=== PATIENT | female | born 1950 ===

== ENCOUNTER 2017-11-30 20:36 | Inpatient (IN) | payer OTHER, MEDICARE ==
[2017-11-30] MEDS ORDERED: Sodium Chloride 0.9% 1,000 ML ONE (21:09)
[2017-11-30] MEDS ORDERED: Sodium Chloride 0.9% 1,000 ML IV ONE (21:18)
[2017-11-30 21:22] LABS: SQUAMOUS EPITHIAL 4 /hpf (0-5); URINE BILIRUBIN NEGATIVE (NEGATIVE); URINE BLOOD 2+ (NEGATIVE); URINE CLARITY Hazy (Clear); URINE COLOR Yellow (YELLOW); URINE GLUCOSE (UA) NORMAL (Normal); URINE LEUKOCYTE ESTERASE 3+ Leu/uL (Negative); URINE PROTEIN NEGATIVE (NEGATIVE); URINE UROBILINOGEN NORMAL mg/dL (0.2-1.0)
--- NOTE | 2017-11-30 21:22 | C.PDOC ---
History Of Present Illness 67 year old female, whose PMHx includes Rheumatoid Arthritis, presents to the ED for evaluation of abdominal pain and vomiting which began at around 1300 today. Patient reports feeling nauseous and "gassy." She had one episode of vomiting and one episode of diarrhea. She denies fever, chills, and has no other complaints at this time. Time Seen by Provider: 11/30/17 21:07 Chief Complaint (Nursing): Abdominal Pain History Per: Patient History/Exam Limitations: no limitations Onset/Duration Of Symptoms: Hrs Current Symptoms Are (Timing): Still Present Location Of Pain/Discomfort: Diffuse Quality Of Discomfort: "Pain" Associated Symptoms: Nausea, Vomiting, Diarrhea. denies: Fever, Chills Additional History Per: Patient Past Medical History Reviewed: Historical Data, Nursing Documentation, Vital Signs Vital Signs: Last Vital Signs Temp 99 F 12/02/17 00:00 Pulse 104 H 12/02/17 00:00 Resp 20 12/02/17 00:00 BP 125/68 12/02/17 00:00 Pulse Ox 99 12/02/17 07:11 - Medical History PMH: Hypothyroidism, Rheumatoid Arthritis Surgical History: No Surg Hx Family History: States: Unknown Family Hx - Social History Hx Alcohol Use: No Hx Substance Use: No Review Of Systems Constitutional: Negative for: Fever, Chills Gastrointestinal: Positive for: Nausea, Vomiting, Abdominal Pain, Diarrhea Physical Exam - Physical Exam Appears: Non-toxic, No Acute Distress Skin: Normal Color, Warm, Dry Head: Atraumatic, Normacephalic Eye(s): bilateral: Normal Inspection Oral Mucosa: Moist Neck: Supple Chest: Symmetrical, No Deformity, No Tenderness Cardiovascular: Rhythm Regular, No Murmur Respiratory: Normal Breath Sounds, No Rales, No Rhonchi, No Wheezing Gastrointestinal/Abdominal: Soft, Tenderness (mild, nonfocal ), No Guarding, No Rebound Extremity: Normal ROM, Capillary Refill (less than 2 seconds ) Neurological/Psych: Oriented x3, Normal Speech, Normal Cognition ED Course And Treatment - Laboratory Results Result Diagrams: 12/02/17 06:11 12/02/17 06:11 ECG: Interpreted By Me, Viewed By Me ECG Rhythm: Sinus Rhythm Interpretation Of ECG: Normal Sinus Rhythm at rate 67bpm. No ST/T wave changes. Rate From EC O2 Sat by Pulse Oximetry: 99 (on RA) Pulse Ox Interpretation: Normal Progress Note: Bloodwork, urinalysis, and EKG ordered and reviewed. Protonix IVP, Zofran IVP and IV Fluids given. Medical Decision Making Medical Decision Making: ro colitis gastritis pud, gallbladder pathology - labs imaging. antibioitcs ordered, case discusseed with dr zakia odonnell Disposition - Disposition Disposition: HOSPITALIZED Disposition Time: 23:33 Condition: STABLE - Clinical Impression Clinical Impression: Cholecystitis - Scribe Statement The provider has reviewed the documentation as recorded by the Scribe (Amelie Dorman) Provider Attestation: All medical record entries made by the Scribe were at my direction and personally dictated by me. I have reviewed the chart and agree that the record accurately reflects my personal performance of the history, physical exam, medical decision making, and the department course for this patient. I have also personally directed, reviewed, and agree with the discharge instructions and disposition. Decision To Admit - . Bed Request Type: Regular Admitting Physician: Jim Dorman Patient Diagnosis: Cholecystitis
[2017-11-30 21:32] LABS: BASO % 0.3 % (0.0-2.0); HEMOGLOBIN 13.1 g/dL (11.0-16.0); LYMPH # 0.7 K/uL (1.0-4.3); LYMPH % 5.8 % (20.0-40.0); MEAN CELL VOLUME 91.3 fL (81.0-99.0); MEAN CORPUSCULAR HEMOGLOBIN 30.4 pg (27.0-31.0); MEAN CORPUSCULAR HGB CONC 33.4 g/dL (33.0-37.0); MEAN PLATELET VOLUME 7.4 fL (7.2-11.7); MONO # 0.3 K/uL (0.0-0.8); MONO % 2.4 % (0.0-10.0); NEUT % 91.5 % (50.0-75.0); NRBC % 0.2 % (0.0-2.0); PLATELET COUNT 326 K/uL (130-400); RED CELL DISTRIBUTION WIDTH 13.5 % (11.5-14.5)
[2017-11-30 21:41] LABS: PROTHROMBIN TIME 11.3 SECONDS (9.7-12.2)
[2017-11-30 21:47] LABS: ALB/GLOB RATIO 1.6 (1.0-2.1); ALBUMIN 4.7 g/dL (3.5-5.0); ALT/SGPT 27 U/L (9-52); AST/SGOT 20 U/L (14-36); BLOOD UREA NITROGEN 15 mg/dL (7-17); CALCIUM 9.7 mg/dl (8.6-10.4); GFR AFRICAN-AMERICAN > 60; GFR NON-AFRICAN AMERICAN > 60; LIPASE 57 U/L (23-300)
[2017-11-30] MEDS ORDERED: Iohexol 300 100 ML IJ ONE ×2 (21:58→22:08)
[2017-11-30] MEDS ORDERED: cefTRIAXone IV 1 gm in Dextros 50 ML IVPB ONE (22:10)
[2017-11-30 22:16] LABS: BANDS 1 % (0-2); LYMPHOCYTE 6 % (20-40); MONOCYTE 1 % (0-10); NEUTROPHIL 92 % (50-75); PLATELET ESTIMATE NORMAL (NORMAL); TOTAL CELLS COUNTED 100
[2017-11-30] MEDS ORDERED: Piperacillin/Tazobact 3.375 gm 100 ML IVPB STA (23:22)
[2017-11-30] MEDS ORDERED: metroNIDAZOLE IV 500 mg/100 ml 500 MG/100 ML BAG IVPB STA (23:23)
[2017-12-01] MEDS ORDERED: metroNIDAZOLE IV 500 mg/100 ml 500 MG/100 ML BAG ONE (00:02)
[2017-12-01] MEDS ORDERED: Sodium Chloride 0.9% 1,000 ML IV SCH (08:15)
--- NOTE | 2017-12-01 08:43 | CT ---
Date of service: 11/30/2017 PROCEDURE: CT Abdomen and Pelvis with intravenous contrast HISTORY: Abdominal pain COMPARISON: None. TECHNIQUE: Multiple contiguous axial images were performed through the abdomen and pelvis with the use of intravenous contrast. Subsequently, sagittal and coronal reformatted images were obtained. Radiation dose: Total exam DLP = 504 mGy-cm. This CT exam was performed using one or more of the following dose reduction techniques: Automated exposure control, adjustment of the mA and/or kV according to patient size, and/or use of iterative reconstruction technique. FINDINGS: LOWER THORAX: Unremarkable. LIVER: Unremarkable. No gross lesion or ductal dilatation. GALLBLADDER AND BILE DUCTS: Cholelithiasis. Gallbladder wall is thickened. Suggestion of a 5-6 millimeter calculus in the distal common bile duct. Mild intrahepatic biliary ductal prominence. PANCREAS: Unremarkable. No gross lesion or ductal dilatation. SPLEEN: Unremarkable. ADRENALS: Unremarkable. No mass. KIDNEYS AND URETERS: Nonobstructing 6 millimeter calculus in the lower pole of the left kidney. Few punctate scattered low-attenuation foci throughout both kidneys, too small to adequately characterize. VASCULATURE: Unremarkable. No aortic aneurysm. BOWEL: Scattered areas of colonic underdistention. APPENDIX: Unremarkable. Normal appendix. PERITONEUM: Unremarkable. No free fluid. No free air. LYMPH NODES: Unremarkable. No enlarged lymph nodes. BLADDER: Unremarkable. REPRODUCTIVE: Pessary in the vagina. Suggestion of a fibroid lesion off the posterior aspect of the uterus. Pelvic ultrasound correlation may be helpful if clinically indicated. BONES: Degenerative changes in the lumbar spine. Anterolisthesis of L5 on S1 as well as L4 on L5. Retrolisthesis of L1 on L2 and L2 on L3. Scoliotic curvature of the spine. OTHER FINDINGS: None. IMPRESSION: Cholelithiasis. Gallbladder wall is thickened. There appears to be a 6 millimeter calculus in the distal common bile duct. Mild intrahepatic biliary ductal prominence. Findings are concerning for acute cholecystitis. Ultrasound evaluation may be helpful if clinically indicated. Additional findings as above. These findings were preliminarily reported at 11:18 p.m. on 11/30/[address] Prabhu Coello from [employer].
[2017-12-01] MEDS: Piperacillin/Tazobact 3.375 GM in Sodium Chloride 100 ML IVPB SCH ×3 (09:57→21:59)
[2017-12-01] MEDS ORDERED: Potassium Chloride 20 mEq ER Tab PO ONE ×2 (10:00)
[2017-12-01] MEDS ORDERED: Lactated Ringer's 1,000 ML IV ONE ×2 (11:42)
[2017-12-01] MEDS ORDERED: Propofol 10 mg/ml Inj (20 ML) ONE (12:13)
[2017-12-01] MEDS ORDERED: Rocuronium 10 mg/ml (5 ml) ONE (12:14)
--- NOTE | 2017-12-01 12:35 | CP.PCM.CON ---
History of Present Illness - History of Present Illness History of Present Illness: General Surgery Consult for Dr. Clark Reason for consult: abdominal pain, cholelithiasis/choledolcholithiasis 67 F with PMH of Rheumatoid arthritis, hypothyroidism, neuropathy presents to [facility] for complaint of abdominal pain. Patient states pain has been present since yesterday. Patient reports sudden onset. She states that she has had this pain in the past twic and the last was about one year ago. She states that she had a couple episodes of nausea/vomiting with NBNB emesis. She rates pain as severe at its worst. She describes pain as constant and dull in epigastric region radiating to umbilicus. She denies any alleviating or aggravating factors. She denies any recent illness or sick contacts. Deneis Fever/chills, chest pain, SOB, palpitations, diarrhea, constipation, incontinenece. Abdominal CT was done in the ED which showed cholelithiasis and choledolcholithiasis. ERCP was perfromed today. No stone was visualized in CBD. GB and cystic duct were also not visulaized. A stent was placed. PMH: stated above Meds: Methotrexate, plaquinel, Gabapentin, Synthroid All: NKDA PSH: retinal aneurysm clipping x 3, x 2, ERCP FH: non-contributory Social: former smoker - 30 yr pack history, deneis ETOH/illicit drug use Review of Systems - Review of Systems All systems: reviewed and no additional remarkable complaints except (as per HPI ) Past Patient History - Past Medical History & Family History Past Medical History?: Yes - Past Social History Smoking Status: Former Smoker - ENDOCRINE/METABOLIC Hx Hypothyroidism: Yes - MUSCULOSKELETAL/RHEUMATOLOGICAL Hx Falls: No Hx Rheumatoid Arthritis: Yes - GENITOURINARY/GYNECOLOGICAL Other/Comment: vaginal problem - takes pessary - PSYCHIATRIC Hx Substance Use: No - SURGICAL HISTORY Other/Comment: aneurism behind left eye - ANESTHESIA Hx Anesthesia: Yes Hx Anesthesia Reactions: No Hx Malignant Hyperthermia: No Has any member of the family had a problem w/ anesthesia?: No Meds Allergies/Adverse Reactions: Allergies Allergy/AdvReac Type Severity Reaction Status Date / Time No Known Allergies Allergy Verified 11/30/17 20:52 - Medications Medications: Current Medications Sodium Chloride (Sodium Chloride 0.9%) 1,000 mls @ 80 mls/hr IV .[id number] [facility] Last Admin: 12/01/17 09:58 Dose: 80 mls/hr Piperacillin Sod/Tazobactam (Sod 3.375 gm/ Sodium Chloride) 100 mls @ 200 mls/ hr IVPB Q6H [facility] PRN Reason: Protocol Last Admin: 12/01/17 09:57 Dose: 200 mls/hr Ciprofloxacin (Cipro 400mg/200ml Dsw) 400 mg in 200 mls @ 133 mls/hr IVPB Q12H [facility] PRN Reason: Protocol Levothyroxine Sodium (Synthroid) 75 mcg PO 0630 [facility] Metoclopramide HCl (Reglan) 10 mg IVP Q8H [facility] Stop: 12/02/17 18:01 Pantoprazole Sodium (Protonix Inj) 40 mg IVP DAILY [facility] Last Admin: 12/01/17 09:57 Dose: 40 mg Physical Exam - Constitutional Appears: No Acute Distress - Head Exam Head Exam: ATRAUMATIC, NORMOCEPHALIC - Eye Exam Eye Exam: EOMI, Normal appearance. absent: Scleral icterus Pupil Exam: PERRL - ENT Exam ENT Exam: Mucous Membranes Moist - Respiratory Exam Respiratory Exam: NORMAL BREATHING PATTERN - Cardiovascular Exam Cardiovascular Exam: REGULAR RHYTHM - GI/Abdominal Exam GI & Abdominal Exam: Normal Bowel Sounds, Soft. absent: Distended, Firm, Guarding, Rebound, Rigid, Tenderness - Extremities Exam Extremities exam: Positive for: normal capillary refill, pedal pulses present - Back Exam Back exam: absent: CVA tenderness (L), CVA tenderness (R) - Neurological Exam Neurological exam: Alert, CN II-XII Intact, Oriented x3 - Psychiatric Exam Psychiatric exam: Normal Affect, Normal Mood - Skin Skin Exam: Dry, Intact, Normal Color, Warm Results - Vital Signs Recent Vital Signs: Last Vital Signs Temp 99.8 F H 12/01/17 07:00 Pulse 68 12/01/17 07:00 Resp 20 12/01/17 07:00 BP 134/71 12/01/17 07:00 Pulse Ox 97 12/01/17 07:00 - Labs Result Diagrams: 11/30/17 21:26 11/30/17 21:26 Labs: Laboratory Results - last 24 hr 11/30/17 11/30/17 11/30/17 21:13 21:26 21:26 WBC 12.0 H RBC 4.30 Hgb 13.1 Hct 39.3 MCV 91.3 MCH 30.4 MCHC 33.4 RDW 13.5 Plt Count 326 MPV 7.4 Neut % (Auto) 91.5 H Lymph % (Auto) 5.8 L [place] % (Auto) 2.4 Eos % (Auto) 0.0 Baso % (Auto) 0.3 Neut # (Auto) 11.0 H Lymph # (Auto) 0.7 L [place] # (Auto) 0.3 Eos # (Auto) 0.0 Baso # (Auto) 0.0 Neutrophils % (Manual) 92 H Band Neutrophils % 1 Lymphocytes % (Manual) 6 L Monocytes % (Manual) 1 Platelet Estimate Normal PT INR APTT Sodium 141 Potassium 3.5 L Chloride 101 Carbon Dioxide 29 Anion Gap 14 BUN 15 Creatinine 0.5 L Est GFR ( Amer) > 60 Est GFR (Non-Af Amer) > 60 Random Glucose 156 H Calcium 9.7 Total Bilirubin 0.7 AST 20 ALT 27 Alkaline Phosphatase 74 Troponin I < 0.0120 Total Protein 7.7 Albumin 4.7 Globulin 3.0 Albumin/Globulin Ratio 1.6 Lipase 57 Urine Color Yellow Urine Clarity Hazy Urine pH 6.0 Ur Specific [place] 1.016 Urine Protein Negative Urine Glucose (UA) Normal Urine Ketones 1+ H Urine Blood 2+ H Urine Nitrate Negative Urine Bilirubin Negative Urine Urobilinogen Normal Ur Leukocyte Esterase 3+ H Urine WBC (Auto) 27 H Urine RBC (Auto) 35 H Ur Squamous Epith Cells 4 11/30/18 21:26 WBC RBC Hgb Hct MCV MCH MCHC RDW Plt Count MPV Neut % (Auto) Lymph % (Auto) Early % (Auto) Eos % (Auto) Baso % (Auto) Neut # (Auto) Lymph # (Auto) Early # (Auto) Eos # (Auto) Baso # (Auto) Neutrophils % (Manual) Band Neutrophils % Lymphocytes % (Manual) Monocytes % (Manual) Platelet Estimate PT 11.3 INR 1.0 APTT 34 Sodium Potassium Chloride Carbon Dioxide Anion Gap BUN Creatinine Est GFR ( Amer) Est GFR (Non-Af Amer) Random Glucose Calcium Total Bilirubin AST ALT Alkaline Phosphatase Troponin I Total Protein Albumin Globulin Albumin/Globulin Ratio Lipase Urine Color Urine Clarity Urine pH Ur Specific [place] Urine Protein Urine Glucose (UA) Urine Ketones Urine Blood Urine Nitrate Urine Bilirubin Urine Urobilinogen Ur Leukocyte Esterase Urine WBC (Auto) Urine RBC (Auto) Ur Squamous Epith Cells Assessment & Plan - Assessment and Plan (Free Text) Assessment: 67 F with cholelithiasis Plan: -NPO past MN -IV fluids -OR tomorrow for laparoscopic cholecystectomy -Analgesics/Anti-emetics PRN -Further recommendations as per Dr. Amber Bro PGY2 - Date & Time Date: 12/01/17 Time: 14:30
--- NOTE | 2017-12-01 13:25 | CP.PCM.CON ---
History of Present Illness - History of Present Illness History of Present Illness: Asked by Dr. Dorman for a GI consultation on this patient. 67 year old female with history of hyperlipidemia, hypothyroidism who presents to hospital with complaint of sudden onset abdominal pain which began yesterday. Prior to this she was in usual state of health, though endorses intermittent epigastric and RUQ abdominal pain over the past one year which would resolve on its own. Yesterday evening she developed sharp, 5/10 intensity sumaya-umbilical pain radiating to back that was associated with one episode of nausea and non-bloody emesis. She denies fever/chills, diarrhea, rectal bleeding, jaundice, pruritis , or change in bowel habits. She had a colonoscopy nearly 8 years ago which was normal as per patient. Social history: non-smoker, no ETOH use Family history: reviewed, patient denies history of GI malignancies Review of Systems - Review of Systems Review of Systems: - All other comprehensive 12 point review of systems performed, negative - Cardiovascular Cardiovascular: absent: Acrocyanosis, Chest Pain, Chest Pain at Rest, Chest Pain with Activity, Claudication, Diaphoresis, Dyspnea, Dyspnea on Exertion, Edema, Irregular Heart Rhythm, Pain Radiating to Arm/Neck/Jaw, Leg Edema, Leg Ulcers, Lightheadedness, Orthopnea, Palpitations, Paroxysmal Nocturnal Dyspnea, Pedal Edema, Radiating Pain, Rapid Heart Rate, Slow Heart Rate, Syncope, Other - Respiratory Respiratory: absent: Cough, Dyspnea, Hemoptysis, Dyspnea on Exertion, Wheezing, Snoring, Stridor, Pain on Inspiration, Chest Congestion, Excessive Mucous Production, Change in Mucous Color, Pain with Coughing, Other - Gastrointestinal Gastrointestinal: Abdominal Pain, Nausea, Vomiting - Musculoskeletal Musculoskeletal: absent: Abnormal Gait, Arthralgias, Atrophy, Back Pain, Deformity, Joint Swelling, Limited Range of Motion, Loss of Height, Muscle Cramps, Muscle Weakness, Myalgias, Neck Pain, Numbness, Radiating Pain into Limb , Stiffness, Tingling, Other - Neurological Neurological: absent: Abnormal Gait, Abnormal Hearing, Abnormal Movements, Abnormal Speech, Behavioral Changes, Burning Sensations, Confusion, Convulsions , Disequilibrium, Dizziness, Numbness, Focal Weakness, Frequent Falls, Headaches , Lack of Coordination, Loss of Vision, Memory Loss, Paresthesias, Radicular Pain, Restless Legs, Sensory Deficit, Syncope, Tingling, Tremor, Vertigo, Weakness, Other Visual Disturbances, Other Past Patient History - Past Medical History & Family History Past Medical History?: Yes - Past Social History Smoking Status: Former Smoker - ENDOCRINE/METABOLIC Hx Hypothyroidism: Yes - MUSCULOSKELETAL/RHEUMATOLOGICAL Hx Falls: No Hx Rheumatoid Arthritis: Yes - GENITOURINARY/GYNECOLOGICAL Other/Comment: vaginal problem - takes pessary - PSYCHIATRIC Hx Substance Use: No - SURGICAL HISTORY Other/Comment: aneurism behind left eye - ANESTHESIA Hx Anesthesia: Yes Hx Anesthesia Reactions: No Hx Malignant Hyperthermia: No Has any member of the family had a problem w/ anesthesia?: No Meds Allergies/Adverse Reactions: Allergies Allergy/AdvReac Type Severity Reaction Status Date / Time No Known Allergies Allergy Verified 11/30/17 20:52 - Medications Medications: Current Medications Sodium Chloride (Sodium Chloride 0.9%) 1,000 mls @ 80 mls/hr IV .[id number] [facility] Last Admin: 12/01/17 09:58 Dose: 80 mls/hr Piperacillin Sod/Tazobactam (Sod 3.375 gm/ Sodium Chloride) 100 mls @ 200 mls/ hr IVPB Q6H [facility] PRN Reason: Protocol Last Admin: 12/01/17 09:57 Dose: 200 mls/hr Ciprofloxacin (Cipro 400mg/200ml Dsw) 400 mg in 200 mls @ 133 mls/hr IVPB Q12H [facility] PRN Reason: Protocol Levothyroxine Sodium (Synthroid) 75 mcg PO 0630 [facility] Metoclopramide HCl (Reglan) 10 mg IVP Q8H [facility] Stop: 12/02/17 18:01 Pantoprazole Sodium (Protonix Inj) 40 mg IVP DAILY [facility] Last Admin: 12/01/17 09:57 Dose: 40 mg Physical Exam - Constitutional Appears: Non-toxic, No Acute Distress - Head Exam Head Exam: NORMAL INSPECTION - Eye Exam Eye Exam: EOMI, Normal appearance - ENT Exam ENT Exam: Mucous Membranes Moist - Respiratory Exam Respiratory Exam: Clear to Auscultation Bilateral - Cardiovascular Exam Cardiovascular Exam: REGULAR RHYTHM, +S1, +S2 - GI/Abdominal Exam GI & Abdominal Exam: Normal Bowel Sounds, Soft, Tenderness Additional comments: sumaya-umbilical and epigastric tenderness to palpation, no rebound/guarding no palpable hepato/splenomegaly - Extremities Exam Extremities exam: Positive for: normal inspection - Neurological Exam Neurological exam: Alert, CN II-XII Intact, Oriented x3, Reflexes Normal - Psychiatric Exam Psychiatric exam: Normal Affect, Normal Mood - Skin Skin Exam: Dry, Intact, Normal Color, Warm Results - Vital Signs Recent Vital Signs: Last Vital Signs Temp 99.8 F H 12/01/17 07:00 Pulse 68 12/01/17 07:00 Resp 20 12/01/17 07:00 BP 134/71 12/01/17 07:00 Pulse Ox 97 12/01/17 07:00 - Labs Result Diagrams: 11/30/17 21:26 11/30/17 21:26 Labs: Laboratory Results - last 24 hr 11/30/17 11/30/17 11/30/17 21:13 21:26 21:26 WBC 12.0 H RBC 4.30 Hgb 13.1 Hct 39.3 MCV 91.3 MCH 30.4 MCHC 33.4 RDW 13.5 Plt Count 326 MPV 7.4 Neut % (Auto) 91.5 H Lymph % (Auto) 5.8 L [place] % (Auto) 2.4 Eos % (Auto) 0.0 Baso % (Auto) 0.3 Neut # (Auto) 11.0 H Lymph # (Auto) 0.7 L [place] # (Auto) 0.3 Eos # (Auto) 0.0 Baso # (Auto) 0.0 Neutrophils % (Manual) 92 H Band Neutrophils % 1 Lymphocytes % (Manual) 6 L Monocytes % (Manual) 1 Platelet Estimate Normal PT INR APTT Sodium 141 Potassium 3.5 L Chloride 101 Carbon Dioxide 29 Anion Gap 14 BUN 15 Creatinine 0.5 L Est GFR ( Amer) > 60 Est GFR (Non-Af Amer) > 60 Random Glucose 156 H Calcium 9.7 Total Bilirubin 0.7 AST 20 ALT 27 Alkaline Phosphatase 74 Troponin I < 0.0120 Total Protein 7.7 Albumin 4.7 Globulin 3.0 Albumin/Globulin Ratio 1.6 Lipase 57 Urine Color Yellow Urine Clarity Hazy Urine pH 6.0 Ur Specific [place] 1.016 Urine Protein Negative Urine Glucose (UA) Normal Urine Ketones 1+ H Urine Blood 2+ H Urine Nitrate Negative Urine Bilirubin Negative Urine Urobilinogen Normal Ur Leukocyte Esterase 3+ H Urine WBC (Auto) 27 H Urine RBC (Auto) 35 H Ur Squamous Epith Cells 4 11/30/17 21:26 WBC RBC Hgb Hct MCV MCH MCHC RDW Plt Count MPV Neut % (Auto) Lymph % (Auto) [place] % (Auto) Eos % (Auto) Baso % (Auto) Neut # (Auto) Lymph # (Auto) [place] # (Auto) Eos # (Auto) Baso # (Auto) Neutrophils % (Manual) Band Neutrophils % Lymphocytes % (Manual) Monocytes % (Manual) Platelet Estimate PT 11.3 INR 1.0 APTT 34 Sodium Potassium Chloride Carbon Dioxide Anion Gap BUN Creatinine Est GFR ( Amer) Est GFR (Non-Af Amer) Random Glucose Calcium Total Bilirubin AST ALT Alkaline Phosphatase Troponin I Total Protein Albumin Globulin Albumin/Globulin Ratio Lipase Urine Color Urine Clarity Urine pH Ur Specific [place] Urine Protein Urine Glucose (UA) Urine Ketones Urine Blood Urine Nitrate Urine Bilirubin Urine Urobilinogen Ur Leukocyte Esterase Urine WBC (Auto) Urine RBC (Auto) Ur Squamous Epith Cells Assessment & Plan - Assessment and Plan (Free Text) Assessment: Hyperlipidemia Hypothyroidism Abdominal pain CT imaging reviewed by me showing cholelithiasis, thickened GB wall, distal CBD stone approximately 5 mm UTI Plan: - NPO - Continue with antibiotic therapy - LFTs normal, continue to monitor - Given presence of choledocholithiasis and abdominal pain, suggest ERCP with stone extraction today - Follow up surgical recommendations regarding timing of potential cholecystectomy - Will continue to monitor patient clinical course
[2017-12-01] MEDS: Ciprofloxacin 400mg/200ml D5W 400 MG/200 ML BAG IVPB SCH ×2 (14:08→15:42)
[2017-12-01] MEDS ORDERED: Lactated Ringer's 500 ML IV SCH (14:15)
--- NOTE | 2017-12-01 16:31 | CP.PCM.HP ---
Past Patient History - Past Medical History & Family History Past Medical History?: Yes - Past Social History Smoking Status: Former Smoker - ENDOCRINE/METABOLIC Hx Hypothyroidism: Yes - MUSCULOSKELETAL/RHEUMATOLOGICAL Hx Falls: No Hx Rheumatoid Arthritis: Yes - GENITOURINARY/GYNECOLOGICAL Other/Comment: vaginal problem - takes pessary - PSYCHIATRIC Hx Substance Use: No - SURGICAL HISTORY Other/Comment: aneurism behind left eye - ANESTHESIA Hx Anesthesia: Yes Hx Anesthesia Reactions: No Hx Malignant Hyperthermia: No Has any member of the family had a problem w/ anesthesia?: No Meds Allergies/Adverse Reactions: Allergies Allergy/AdvReac Type Severity Reaction Status Date / Time No Known Allergies Allergy Verified 11/30/17 20:52 Results - Vital Signs Recent Vital Signs: Last Vital Signs Temp 97 F L 12/01/17 13:35 Pulse 79 12/01/17 14:20 Resp 18 12/01/17 14:20 BP 133/63 12/01/17 14:20 Pulse Ox 100 12/01/17 14:20 - Labs Result Diagrams: 11/30/17 21:26 11/30/17 21:26 Labs: Laboratory Results - last 24 hr 11/30/17 11/30/17 11/30/17 21:13 21:26 21:26 WBC 12.0 H RBC 4.30 Hgb 13.1 Hct 39.3 MCV 91.3 MCH 30.4 MCHC 33.4 RDW 13.5 Plt Count 326 MPV 7.4 Neut % (Auto) 91.5 H Lymph % (Auto) 5.8 L [place] % (Auto) 2.4 Eos % (Auto) 0.0 Baso % (Auto) 0.3 Neut # (Auto) 11.0 H Lymph # (Auto) 0.7 L [place] # (Auto) 0.3 Eos # (Auto) 0.0 Baso # (Auto) 0.0 Neutrophils % (Manual) 92 H Band Neutrophils % 1 Lymphocytes % (Manual) 6 L Monocytes % (Manual) 1 Platelet Estimate Normal PT INR APTT Sodium 141 Potassium 3.5 L Chloride 101 Carbon Dioxide 29 Anion Gap 14 BUN 15 Creatinine 0.5 L Est GFR ( Amer) > 60 Est GFR (Non-Af Amer) > 60 Random Glucose 156 H Calcium 9.7 Total Bilirubin 0.7 AST 20 ALT 27 Alkaline Phosphatase 74 Troponin I < 0.0120 Total Protein 7.7 Albumin 4.7 Globulin 3.0 Albumin/Globulin Ratio 1.6 Lipase 57 Urine Color Yellow Urine Clarity Hazy Urine pH 6.0 Ur Specific [place] 1.016 Urine Protein Negative Urine Glucose (UA) Normal Urine Ketones 1+ H Urine Blood 2+ H Urine Nitrate Negative Urine Bilirubin Negative Urine Urobilinogen Normal Ur Leukocyte Esterase 3+ H Urine WBC (Auto) 27 H Urine RBC (Auto) 35 H Ur Squamous Epith Cells 4 11/30/17 21:26 WBC RBC Hgb Hct MCV MCH MCHC RDW Plt Count MPV Neut % (Auto) Lymph % (Auto) [place] % (Auto) Eos % (Auto) Baso % (Auto) Neut # (Auto) Lymph # (Auto) [place] # (Auto) Eos # (Auto) Baso # (Auto) Neutrophils % (Manual) Band Neutrophils % Lymphocytes % (Manual) Monocytes % (Manual) Platelet Estimate PT 11.3 INR 1.0 APTT 34 Sodium Potassium Chloride Carbon Dioxide Anion Gap BUN Creatinine Est GFR ( Amer) Est GFR (Non-Af Amer) Random Glucose Calcium Total Bilirubin AST ALT Alkaline Phosphatase Troponin I Total Protein Albumin Globulin Albumin/Globulin Ratio Lipase Urine Color Urine Clarity Urine pH Ur Specific [place] Urine Protein Urine Glucose (UA) Urine Ketones Urine Blood Urine Nitrate Urine Bilirubin Urine Urobilinogen Ur Leukocyte Esterase Urine WBC (Auto) Urine RBC (Auto) Ur Squamous Epith Cells
--- NOTE | 2017-12-01 17:00 | RAD ---
Date of service: 12/01/2017 PROCEDURE: Intraoperative fluoroscopy HISTORY: OBS. CYSTIC DUCT COMPARISON: Not available TECHNIQUE: Intraoperative fluoroscopy was provided for cholangiography and biliary stent insertion total time of fluoroscopy was 297.3 seconds FINDINGS: Multiple fluoroscopic spot films are submitted demonstrating retrograde injection of contrast material into the biliary tree. No filling defect is identified. A biliary stent is demonstrated on the final film. IMPRESSION: Fluoroscopy provided.
--- NOTE | 2017-12-01 17:07 | CARD ---
APPROVED REPORT Date of service: 11/30/2017 EKG Measurement Heart [id number] <Conclusion> Normal sinus rhythm Normal ECG
[2017-12-02] MEDS: Ciprofloxacin 400mg/200ml D5W 400 MG/200 ML BAG IVPB SCH (00:12)
[2017-12-02] MEDS: Piperacillin/Tazobact 3.375 GM in Sodium Chloride 100 ML IVPB SCH ×4 (03:30→21:38)
[2017-12-02] MEDS: Levothyroxine 75 MCG TAB PO SCH (06:11)
[2017-12-02 06:22] LABS: BASO % 0.1 % (0.0-2.0); EOS % 0.1 % (0.0-4.0); LYMPH % 5.5 % (20.0-40.0); MEAN CELL VOLUME 91.8 fL (81.0-99.0); MEAN CORPUSCULAR HEMOGLOBIN 31.2 pg (27.0-31.0); MEAN PLATELET VOLUME 7.6 fL (7.2-11.7); MONO % 5.2 % (0.0-10.0); NEUT % 89.1 % (50.0-75.0); PLATELET COUNT 289 K/uL (130-400); RBC 4.17 Mil/uL (3.80-5.20); RED CELL DISTRIBUTION WIDTH 13.4 % (11.5-14.5); WHITE BLOOD COUNT 19.1 K/uL (4.8-10.8)
--- NOTE | 2017-12-02 06:44 | CP.PCM.PN ---
<Medhat Sterling - Last Filed: 12/02/17 09:10> Subjective - Date & Time of Evaluation Date of Evaluation: 12/02/17 Time of Evaluation: 06:35 - Subjective Subjective: GI Fellow PGY4, Progress note. Patient seen and examined at bedside. No acute overnight events. OR today for cholecystectomy. Complains of right sided abdominal pain. Admits passing flatus and nausea relieved by reglan. Denies vomiting. 12pt ROS completed and negative except for above. Objective - Vital Signs/Intake and Output Vital Signs (last 24 hours): Temp Pulse Resp BP Pulse Ox 99 F 104 H 20 125/68 95 12/02/17 00:00 12/02/17 00:00 12/02/17 00:00 12/02/17 00:00 12/02/17 00:00 Intake and Output: 12/01/17 12/02/17 18:59 06:59 Intake Total 320 900 Balance 320 900 - Medications Medications: Current Medications Piperacillin Sod/Tazobactam (Sod 3.375 gm/ Sodium Chloride) 100 mls @ 200 mls/ hr IVPB Q6H [facility] PRN Reason: Protocol Last Admin: 12/02/17 03:30 Dose: 200 mls/hr Ciprofloxacin (Cipro 400mg/200ml Dsw) 400 mg in 200 mls @ 133 mls/hr IVPB Q12H [facility] PRN Reason: Protocol Last Admin: 12/02/17 00:12 Dose: 133 mls/hr Lactated Ringer's (Lactated Ringer's 500ml) 500 mls @ 75 mls/hr IV .Q6H40M [facility] Levothyroxine Sodium (Synthroid) 75 mcg PO 0630 [facility] Last Admin: 12/02/17 06:11 Dose: 75 mcg Metoclopramide HCl (Reglan) 10 mg IVP Q8H [facility] Stop: 12/02/17 18:01 Last Admin: 12/02/17 01:54 Dose: 10 mg Pantoprazole Sodium (Protonix Inj) 40 mg IVP DAILY [facility] Last Admin: 12/01/17 09:57 Dose: 40 mg - Labs Labs: 12/02/17 06:11 11/30/17 21:26 PT 11.3 SECONDS (9.7-12.2) 11/30/17 21:26 INR 1.0 11/30/17 21:26 APTT 34 SECONDS (21-34) 11/30/17 21:26 - Constitutional Appears: Non-toxic, No Acute Distress - Head Exam Head Exam: ATRAUMATIC, NORMAL INSPECTION, NORMOCEPHALIC - Eye Exam Eye Exam: EOMI, Normal appearance - ENT Exam ENT Exam: Mucous Membranes Moist, Normal Exam - Respiratory Exam Respiratory Exam: Clear to Ausculation Bilateral, NORMAL BREATHING PATTERN. absent: Wheezes - Cardiovascular Exam Cardiovascular Exam: Tachycardia, REGULAR RHYTHM, +S1, +S2 - GI/Abdominal Exam GI & Abdominal Exam: Soft, Tenderness, Normal Bowel Sounds. absent: Distended - Extremities Exam Extremities Exam: Normal Inspection - Neurological Exam Neurological Exam: Alert, Awake, Oriented x3 - Psychiatric Exam Psychiatric exam: Normal Affect, Normal Mood - Skin Skin Exam: Dry, Normal Color Assessment and Plan - Assessment and Plan (Free Text) Assessment: #Abdominal pain #Choledocolithiasis #Cholecystitis #Gastric polyps #Hyperlipidemia #Hypothyroidism #RA Plan: - CT imaging reviewed showing cholelithiasis, thickened GB wall, distal CBD stone approximately 5 mm - ERCP 12/01/17 - No obvious filling defect. GB and cystic duct not visualized indicating likely obstructive cystic stone. No sphincterotomy or balloon sweep. Temporary biliary stent placed. - NPO - Continue with antibiotic therapy - T.Bili elevated, recommend IOC today. - Follow up surgical recommendations - Outpatient follow up with Dr. Holly in 2 weeks for colonoscopy and EGD as well as planning stent removal. <Semaj Holly - Last Filed: 12/02/17 10:47> Objective - Vital Signs/Intake and Output Vital Signs (last 24 hours): Temp Pulse Resp BP Pulse Ox 98 F 108 H 20 118/68 95 12/02/17 08:00 12/02/17 08:00 12/02/17 08:00 12/02/17 08:00 12/02/17 08:00 Intake and Output: 12/02/17 12/02/17 06:59 18:59 Intake Total 900 Balance 900 - Medications Medications: Current Medications Piperacillin Sod/Tazobactam (Sod 3.375 gm/ Sodium Chloride) 100 mls @ 200 mls/ hr IVPB Q6H [facility] PRN Reason: Protocol Last Admin: 12/02/17 03:30 Dose: 200 mls/hr Lactated Ringer's (Lactated Ringer's) 1,000 mls @ 106 mls/hr IV .Q9H27M [facility] Last Admin: 12/02/17 09:50 Dose: 106 mls/hr Levothyroxine Sodium (Synthroid) 75 mcg PO 0630 [facility] Last Admin: 12/02/17 06:11 Dose: 75 mcg Metoclopramide HCl (Reglan) 10 mg IVP Q8H [facility] Stop: 12/02/17 18:01 Last Admin: 12/02/17 09:21 Dose: 10 mg Pantoprazole Sodium (Protonix Inj) 40 mg IVP DAILY [facility] Last Admin: 12/02/17 09:21 Dose: 40 mg - Labs Labs: 12/02/17 06:11 12/02/17 06:11 PT 11.3 SECONDS (9.7-12.2) 11/30/17 21:26 INR 1.0 11/30/17 21:26 APTT 34 SECONDS (21-34) 11/30/17 21:26 Attending/Attestation - Attestation I have personally seen and examined this patient.: Yes I have fully participated in the care of the patient.: Yes I have reviewed all pertinent clinical information, including history, physical exam and plan: Yes Notes (Text): 12/02/17 10:44 I have seen and examined patient with GI fellow. No acute events overnight, she is seen resting in bed comfortably. She continues to endorse RUQ abdominal pain, though improved compared to previous day. She denies nausea, vomiting, fever/chills. Review of vitals from today shows tachycardia. Abdominal pain Acute cholecystitis Choledocholithiasis s/p ERCP with biliary stent placement yesterday - NPO - Continue with antibiotic therapy - Patient planned for cholecystectomy today, would recommend IOC to be performed - LFTs stable, continue to monitor - Follow up surgical recommendations - No further planned GI interventions, will sign off case. Patient to follow up in office for screening colonoscopy and EGD for treatment of gastric polyps, office contact information provided to patient. Please reconsult as necessary, thank you.
[2017-12-02 07:03] LABS: ALB/GLOB RATIO 1.2 (1.0-2.1); ALBUMIN 3.7 g/dL (3.5-5.0); ALT/SGPT 31 U/L (9-52); AST/SGOT 30 U/L (14-36); BLOOD UREA NITROGEN 9 mg/dL (7-17); CALCIUM 8.4 mg/dl (8.6-10.4); GFR AFRICAN-AMERICAN > 60; GFR NON-AFRICAN AMERICAN > 60
[2017-12-02 09:11] LABS: LYMPHOCYTE 3 % (20-40); MONOCYTE 6 % (0-10); NEUTROPHIL 91 % (50-75); TOTAL CELLS COUNTED 100
[2017-12-02 09:12] LABS: PLATELET ESTIMATE NORMAL (NORMAL)
[2017-12-02] MEDS ORDERED: Bupivacaine-Epi 0.5%-1:200,000 PF Inj ONE (09:27)
[2017-12-02] MEDS ORDERED: ceFAZolin IV 2 gm in Dextrose 0 GM/0 ML BAG IVPB ONE (09:27)
[2017-12-02] MEDS: Lactated Ringer's 1,000 ML IV SCH (09:50)
[2017-12-02] MEDS ORDERED: Propofol 10 mg/ml Inj (20 ML) ONE (09:55)
[2017-12-02] MEDS ORDERED: Midazolam 2 MG/2 ML VIAL ONE (09:55)
[2017-12-02] MEDS ORDERED: Lactated Ringer's 1,000 ML IV ONE ×3 (10:00→13:45)
[2017-12-02] MEDS ORDERED: Neostigmine Methylsulfate 3mg/3ml Syringe IV ONE (10:51)
--- NOTE | 2017-12-02 11:29 | CARD ---
APPROVED REPORT Date of service: 12/01/2017 EKG Measurement Heart [id number] ID [id number] <Conclusion> Normal sinus rhythm Normal ECG
[2017-12-02] MEDS ORDERED: HYDROmorphone 0.5 mg/0.5 ml ISec IVP PRN ×2 (12:42→12:46)
--- NOTE | 2017-12-02 12:43 | PCM.SURG1 ---
Surgeon's Initial Post Op Note - Surgeon's Notes Surgeon: Dr. Clark Oyster Opener: Dr. Donato PGY3, Dr. Bro PGY2, Nilda MS3 Type of Anesthesia: General Endo Pre-Operative Diagnosis: Cholecystitis Operative Findings: See operative dictation Post-Operative Diagnosis: Cholecystitis Operation Performed: Laparoscopic Cholecystectomy Specimen/Specimens Removed: Gallbladder Estimated Blood Loss: EBL {In ML}: 60 Blood Products Given: N/A Drains Used: Alex Post-Op Condition: Good Date of Surgery/Procedure: 12/02/17 Time of Surgery/Procedure: 12:42
[2017-12-02] MEDS ORDERED: HYDROmorphone 0.5 mg/0.5 ml ISec ONE (13:06)
--- NOTE | 2017-12-02 17:48 | CP.PCM.PN ---
Subjective - Date & Time of Evaluation Date of Evaluation: 12/02/17 Time of Evaluation: 17:48 Objective - Vital Signs/Intake and Output Vital Signs (last 24 hours): Temp Pulse Resp BP Pulse Ox 98.0 F 82 20 100/58 L 94 L 12/02/17 16:14 12/02/17 16:14 12/02/17 16:14 12/02/17 16:14 12/02/17 16:14 Intake and Output: 12/02/17 12/02/17 06:59 18:59 Intake Total 900 Output Total 20 Balance 900 -20 - Medications Medications: Current Medications Hydromorphone HCl (Dilaudid) 0.5 mg IVP Q4H PRN PRN Reason: Pain, severe (8-10) Piperacillin Sod/Tazobactam (Sod 3.375 gm/ Sodium Chloride) 100 mls @ 200 mls/ hr IVPB Q6H [facility] PRN Reason: Protocol Last Admin: 12/02/17 17:33 Dose: 200 mls/hr Lactated Ringer's (Lactated Ringer's) 1,000 mls @ 106 mls/hr IV .Q9H27M [facility] Last Admin: 12/02/17 09:50 Dose: 106 mls/hr Levothyroxine Sodium (Synthroid) 75 mcg PO 0630 [facility] Last Admin: 12/02/17 06:11 Dose: 75 mcg Metoclopramide HCl (Reglan) 10 mg IVP Q8H [facility] Stop: 12/02/17 18:01 Last Admin: 12/02/17 17:33 Dose: Not Given Ondansetron HCl (Zofran Inj) 4 mg IVP Q6H PRN PRN Reason: Nausea/Vomiting Pantoprazole Sodium (Protonix Inj) 40 mg IVP DAILY [facility] Last Admin: 12/02/17 09:21 Dose: 40 mg - Labs Labs: 12/02/17 06:11 12/02/17 06:11 PT 11.3 SECONDS (9.7-12.2) 11/30/17 21:26 INR 1.0 11/30/17 21:26 APTT 34 SECONDS (21-34) 11/30/17 21:26
--- NOTE | 2017-12-02 20:17 | CP.PCM.CON ---
History of Present Illness - History of Present Illness History of Present Illness: dictated Past Patient History - Past Medical History & Family History Past Medical History?: Yes - Past Social History Smoking Status: Former Smoker - ENDOCRINE/METABOLIC Hx Hypothyroidism: Yes - MUSCULOSKELETAL/RHEUMATOLOGICAL Hx Rheumatoid Arthritis: Yes - GENITOURINARY/GYNECOLOGICAL Other/Comment: vaginal problem - takes pessary - PSYCHIATRIC Hx Substance Use: No - SURGICAL HISTORY Other/Comment: aneurism behind left eye - ANESTHESIA Hx Anesthesia: Yes Hx Anesthesia Reactions: No Hx Malignant Hyperthermia: No Has any member of the family had a problem w/ anesthesia?: No Meds Allergies/Adverse Reactions: Allergies Allergy/AdvReac Type Severity Reaction Status Date / Time No Known Allergies Allergy Verified 11/30/17 20:52 - Medications Medications: Current Medications Hydromorphone HCl (Dilaudid) 0.5 mg IVP Q4H PRN PRN Reason: Pain, severe (8-10) Piperacillin Sod/Tazobactam (Sod 3.375 gm/ Sodium Chloride) 100 mls @ 200 mls/ hr IVPB Q6H [facility] PRN Reason: Protocol Last Admin: 12/02/17 17:33 Dose: 200 mls/hr Lactated Ringer's (Lactated Ringer's) 1,000 mls @ 106 mls/hr IV .Q9H27M [facility] Last Admin: 12/02/17 09:50 Dose: 106 mls/hr Levothyroxine Sodium (Synthroid) 75 mcg PO 0630 [facility] Last Admin: 12/02/17 06:11 Dose: 75 mcg Ondansetron HCl (Zofran Inj) 4 mg IVP Q6H PRN PRN Reason: Nausea/Vomiting Pantoprazole Sodium (Protonix Inj) 40 mg IVP DAILY [facility] Last Admin: 12/02/17 09:21 Dose: 40 mg Results - Vital Signs Recent Vital Signs: Last Vital Signs Temp 98.0 F 12/02/17 16:14 Pulse 82 12/02/17 16:14 Resp 20 12/02/17 16:14 BP 100/58 L 12/02/17 16:14 Pulse Ox 94 L 12/02/17 16:14 - Labs Result Diagrams: 12/02/17 06:11 12/02/17 06:11 Labs: Laboratory Results - last 24 hr 12/02/17 12/02/17 12/02/17 06:11 06:11 16:25 WBC 19.1 H D RBC 4.17 Hgb 13.0 Hct 38.3 MCV 91.8 MCH 31.2 H MCHC 34.0 RDW 13.4 Plt Count 289 MPV 7.6 Neut % (Auto) 89.1 H Lymph % (Auto) 5.5 L Whitley % (Auto) 5.2 Eos % (Auto) 0.1 Baso % (Auto) 0.1 Neut # (Auto) 17.0 H Lymph # (Auto) 1.0 Whitley # (Auto) 1.0 H Eos # (Auto) 0.0 Baso # (Auto) 0.0 Neutrophils % (Manual) 91 H Lymphocytes % (Manual) 3 L Monocytes % (Manual) 6 Platelet Estimate Normal RBC Morphology Normal Sodium 137 Potassium 3.5 L Chloride 105 Carbon Dioxide 22 Anion Gap 14 BUN 9 Creatinine 0.6 L Est GFR ( Amer) > 60 Est GFR (Non-Af Amer) > 60 Random Glucose 127 H Calcium 8.4 L Total Bilirubin 1.7 H AST 30 ALT 31 Alkaline Phosphatase 82 Total Protein 6.7 Albumin 3.7 Globulin 3.0 Albumin/Globulin Ratio 1.2 Blood Type O POSITIVE Antibody Screen Negative
--- NOTE | 2017-12-03 00:07 | OP ---
DATE: 12/02/2017 PREOPERATIVE DIAGNOSES: Acute cholecystitis and cholelithiasis. POSTOPERATIVE DIAGNOSES: Acute cholecystitis and cholelithiasis. PROCEDURE PERFORMED: Laparoscopic cholecystectomy. FINDINGS: The tremendously enlarged tense gallbladder with very thickened neal. A large amount of fibrinopurulent exudate was noted around the right upper quadrant of the abdomen. A small amount of clear fluid was noted. The gallbladder contained stones, but it was acutely inflamed. DESCRIPTION OF PROCEDURE: Under general anesthesia, the patient was prepared and draped in the usual sterile fashion. First a Veress needle was inserted through the umbilicus through which CO2 was insufflated to about 15 mmHg pressure. A 10-mm trochar was inserted through which a laparoscope was inserted. Under direct vision, a 5-mm epigastric port and a 5-mm right upper quadrant ports were inserted. The gallbladder was found to be almost folded at the mid part going inferiorly, but it was acutely inflamed, red, and very friable. Because we could not grab the gallbladder with any of the instruments, it was decompressed with a Veress needle, and a large amount of fluid was obtained and was sent for culture. A grasper was then applied around the area of the ampulla. Traction was applied. Cystic duct and cystic arteries were then isolated. They were transected between hemoclips. Because of the difficulty in visualizing the area of the cholecystoduodenal ligament area, a fourth trochar was inserted, which was a 5 mm one applied to the fundus. It was pushed up all the way and the second grasper applied around the area of the cystic duct. Gentle traction was applied. The gallbladder was then from the liver with electrocautery. All the bleeders were controlled with electrocautery. Then the gallbladder was placed in an EndoCatch, but it was too big for one bag, so another bag was used to put the old bag and the gallbladder inside the new one. It was necessary to enlarge the fascial and skin incision to allow for the passage of this large gallbladder. The 10-mm trocars were then reinserted after extracting the gallbladder and suctioning of the remaining clots and debris was done. Irrigation was further done. A drain was left inside up around Morison's pouch, was brought through one of the trocar wounds. The estimated blood loss for the procedure at this point was about 100 mL. The wound was closed in a routine fashion. Brett Clark MD
[2017-12-03] MEDS: Lactated Ringer's 1,000 ML IV SCH ×2 (02:47→09:39)
[2017-12-03] MEDS: Piperacillin/Tazobact 3.375 GM in Sodium Chloride 100 ML IVPB SCH ×4 (03:37→22:19)
[2017-12-03] MEDS: Levothyroxine 75 MCG TAB PO SCH (05:32)
--- NOTE | 2017-12-03 07:31 | CP.PCM.PN ---
Subjective - Date & Time of Evaluation Date of Evaluation: 12/03/17 Time of Evaluation: 06:30 - Subjective Subjective: General Surgery Note for Dr. Clark Patient seen and examined at bedside. No acute event overnight. Patient is s/p Laparoscopic Cholecystectomy POD#1. Patient states pain is controlled. She denies fever/chills and nausea/vomiting. Patient states that she is passing flatus but no BM. Patient has no other complaints at this time. Objective - Vital Signs/Intake and Output Vital Signs (last 24 hours): Temp Pulse Resp BP Pulse Ox 98.3 F 90 20 117/75 96 12/02/17 23:52 12/02/17 23:52 12/02/17 23:52 12/02/17 23:52 12/02/17 23:52 Intake and Output: 12/03/17 12/03/17 06:59 18:59 Intake Total 1700 Output Total 405 Balance 1295 - Medications Medications: Current Medications Hydromorphone HCl (Dilaudid) 0.5 mg IVP Q4H PRN PRN Reason: Pain, severe (8-10) Piperacillin Sod/Tazobactam (Sod 3.375 gm/ Sodium Chloride) 100 mls @ 200 mls/ hr IVPB Q6H [facility] PRN Reason: Protocol Last Admin: 12/03/17 03:37 Dose: 200 mls/hr Lactated Ringer's (Lactated Ringer's) 1,000 mls @ 106 mls/hr IV .Q9H27M [facility] Last Admin: 12/03/17 02:47 Dose: 106 mls/hr Levothyroxine Sodium (Synthroid) 75 mcg PO 0630 [facility] Last Admin: 12/03/17 05:32 Dose: 75 mcg Ondansetron HCl (Zofran Inj) 4 mg IVP Q6H PRN PRN Reason: Nausea/Vomiting Pantoprazole Sodium (Protonix Inj) 40 mg IVP DAILY [facility] Last Admin: 12/02/17 09:21 Dose: 40 mg - Labs Labs: 12/02/17 06:11 12/02/17 06:11 PT 11.3 SECONDS (9.7-12.2) 11/30/17 21:26 INR 1.0 11/30/17 21:26 APTT 34 SECONDS (21-34) 07/17/18 21:26 - Constitutional Appears: No Acute Distress - Head Exam Head Exam: ATRAUMATIC, NORMOCEPHALIC - Eye Exam Eye Exam: EOMI, Normal appearance Pupil Exam: PERRL - ENT Exam ENT Exam: Mucous Membranes Moist - Respiratory Exam Respiratory Exam: NORMAL BREATHING PATTERN - Cardiovascular Exam Cardiovascular Exam: REGULAR RHYTHM - GI/Abdominal Exam GI & Abdominal Exam: Soft, Tenderness (minimal at surgical sites), Normal Bowel Sounds. absent: Distended, Firm, Guarding, Rigid, Rebound - Extremities Exam Extremities Exam: Normal Capillary Refill - Neurological Exam Neurological Exam: Alert, Awake, Oriented x3 - Psychiatric Exam Psychiatric exam: Normal Affect, Normal Mood - Skin Skin Exam: Dry, Intact, Warm Assessment and Plan - Assessment and Plan (Free Text) Assessment: 67F s/p Laparoscopic Cholecystectomy POD#1 Plan: -Regular diet -IV antibiotics -Analgesics/Anti-emetics PRN -PT -OOB to chair/IS/Ambulation -Further recommendations as per Dr. Amber Bro PGY2
--- NOTE | 2017-12-03 08:10 | CON ---
DATE: 12/02/2017 HISTORY OF PRESENT ILLNESS: The patient is a 67-year-old female. She has a history of rheumatoid arthritis and came in with abdominal pain and vomiting. She was admitted on 11/30/2017. I came to see her yesterday. She was in endoscopy, and today, she went for the laparoscopic cholecystectomy. She was feeling very nauseous and gassy and had one episode of vomiting and one episode of diarrhea before coming. She denied any fever. No chills. She underwent an ERCP yesterday as they found she needed ERCP, which was done yesterday by Dr. Reno and it is written on his note that she may also have gastric polyp. The patient is now status post cholecystectomy, which was laparoscopic and she is feeling slightly better. She was on Zosyn as well as Cipro yesterday and her white count was 19, but we would leave her on Zosyn at this time. She did had a temp of 100 before, but now it is 98. Pulse 82. Blood pressure 100/58. Respirations are 20 and saturations are 94%. She just came back from the OR when I saw her. PAST MEDICAL HISTORY: Significant for hypothyroidism and rheumatoid arthritis. She had no previous surgeries. FAMILY HISTORY: No family history. SOCIAL HISTORY: Negative for smoking or drug abuse or any substance abuse. REVIEW OF SYSTEMS: She has constitutional symptoms, but when she came in, she had no fever, no chills. She had nausea, vomiting, abdominal pain and had diarrhea, and other review of systems was negative. The patient was admitted and was found to have acute cholecystitis. MEDICATIONS: At the present time, she is on hydromorphone, which is Dilaudid. She is on Dilaudid 0.5 every 4 hours and she is on lactated Ringer's. She is on levothyroxine 75, as she has hypothyroid on Zofran p.r.n., pantoprazole, and she is on Zosyn 3.3 every 6 hours at this time, which I will continue. She reports she had yesterday, and today's note says laparoscopic cholecystectomy gallbladder. PHYSICAL EXAMINATION: GENERAL: She appears frail, but is awake, alert, able to answer questions. Denies any other complaints. HEENT: Head is atraumatic, normocephalic. Pupils are reacting to light. NECK: Supple. EMIR is flat. LUNGS: Clear. HEART: S1 and S2 are regular. ABDOMEN: Mildly distended. Just came back after laparoscopic cholecystectomy and she has a drain present. EXTREMITIES: No edema, clubbing, or cyanosis. She has Venodyne boots present. LABORATORY DATA: White count is 19.1, hemoglobin 13, hematocrit 38.3, platelet count is 289. Sodium is 137, potassium 3.5, chloride 105, CO2 is 22, BUN is 14, creatinine is 0.6. Her CAT scan shows cholelithiasis, gallbladder wall is thickened and appears a 6 mm calculus in the distal CBD, mild intrahepatic biliary ductal prominence. Findings are concerning for acute cholecystitis. Ultrasound is actually very helpful. She had choledocholithiasis as well as cholecystitis. Hence underwent ERCP and surgery and she is on Zosyn. We will repeat the labs tomorrow again and we will follow. She has history of rheumatoid disease . Kinsey Cabral MD MTDNeetu
[2017-12-03 08:40] LABS: EOS % 0.4 % (0.0-4.0); MONO # 0.5 K/uL (0.0-0.8)
[2017-12-03 08:51] LABS: BASO % 0.2 % (0.0-2.0); LYMPH # 1.3 K/uL (1.0-4.3); LYMPH % 12.7 % (20.0-40.0); MEAN CELL VOLUME 92.2 fL (81.0-99.0); MEAN CORPUSCULAR HEMOGLOBIN 32.4 pg (27.0-31.0); MEAN CORPUSCULAR HGB CONC 35.1 g/dL (33.0-37.0); MEAN PLATELET VOLUME 7.9 fL (7.2-11.7); NEUT # 8.4 K/uL (1.8-7.0); NEUT % 81.7 % (50.0-75.0); RBC 3.31 Mil/uL (3.80-5.20); RED CELL DISTRIBUTION WIDTH 13.5 % (11.5-14.5); WHITE BLOOD COUNT 10.3 K/uL (4.8-10.8)
[2017-12-03 08:55] LABS: HEMOGLOBIN 10.7 g/dL (11.0-16.0)
[2017-12-03] MEDS ORDERED: Oxycodone/Acetaminophen 5/325 mg Tab PO PRN (08:55)
[2017-12-03 09:14] LABS: ALBUMIN 2.9 g/dL (3.5-5.0); ALT/SGPT 63 U/L (9-52); AST/SGOT 54 U/L (14-36); BLOOD UREA NITROGEN 9 mg/dL (7-17); GFR AFRICAN-AMERICAN > 60; GFR NON-AFRICAN AMERICAN > 60
[2017-12-03] MEDS ORDERED: Potassium Chloride 20 mEq ER Tab PO ONE (10:30)
[2017-12-03 12:52] LABS: HEMOGLOBIN 11.5 g/dL (11.0-16.0); MEAN CELL VOLUME 91.9 fL (81.0-99.0); MEAN CORPUSCULAR HEMOGLOBIN 31.5 pg (27.0-31.0); MEAN CORPUSCULAR HGB CONC 34.3 g/dL (33.0-37.0); RBC 3.67 Mil/uL (3.80-5.20); RED CELL DISTRIBUTION WIDTH 13.5 % (11.5-14.5); WHITE BLOOD COUNT 10.8 K/uL (4.8-10.8)
[2017-12-03 13:00] LABS: SQUAMOUS EPITHIAL 6 /hpf (0-5); URINE BACTERIA RARE (<OCC); URINE BILIRUBIN NEGATIVE (NEGATIVE); URINE BLOOD 2+ (NEGATIVE); URINE CLARITY Clear (Clear); URINE COLOR Yellow (YELLOW); URINE GLUCOSE (UA) NORMAL (Normal); URINE LEUKOCYTE ESTERASE 3+ Leu/uL (Negative); URINE PROTEIN NEGATIVE (NEGATIVE); URINE UROBILINOGEN NORMAL mg/dL (0.2-1.0)
--- NOTE | 2017-12-03 16:07 | CP.PCM.PN ---
Subjective - Date & Time of Evaluation Date of Evaluation: 12/03/17 Time of Evaluation: 16:07 Objective - Vital Signs/Intake and Output Vital Signs (last 24 hours): Temp Pulse Resp BP Pulse Ox 98.3 F 82 20 120/61 95 12/03/17 07:56 12/03/17 07:56 12/03/17 07:56 12/03/17 07:56 12/03/17 07:56 Intake and Output: 12/03/17 12/03/17 06:59 18:59 Intake Total 1700 1010 Output Total 405 26 Balance 1295 984 - Medications Medications: Current Medications Piperacillin Sod/Tazobactam (Sod 3.375 gm/ Sodium Chloride) 100 mls @ 200 mls/ hr IVPB Q6H [facility] PRN Reason: Protocol Last Admin: 12/03/17 15:49 Dose: 200 mls/hr Levothyroxine Sodium (Synthroid) 75 mcg PO 0630 [facility] Last Admin: 12/03/17 05:32 Dose: 75 mcg Ondansetron HCl (Zofran Inj) 4 mg IVP Q6H PRN PRN Reason: Nausea/Vomiting Oxycodone/Acetaminophen (Percocet 5/325 Mg Tab) 1 tab PO Q4H PRN PRN Reason: Pain, moderate (4-7) Stop: 12/06/17 08:56 Pantoprazole Sodium (Protonix Inj) 40 mg IVP DAILY [facility] Last Admin: 12/03/17 09:40 Dose: 40 mg - Labs Labs: 12/03/17 12:48 12/03/17 08:31 PT 11.3 SECONDS (9.7-12.2) 11/30/17 21:26 INR 1.0 11/30/17 21:26 APTT 34 SECONDS (21-34) 11/30/17 21:26
--- NOTE | 2017-12-03 21:40 | CP.PCM.PN ---
Subjective - Date & Time of Evaluation Date of Evaluation: 12/03/17 Time of Evaluation: 03:00 - Subjective Subjective: dictated Objective - Vital Signs/Intake and Output Vital Signs (last 24 hours): Temp Pulse Resp BP Pulse Ox 98 F 69 16 126/78 98 12/03/17 16:00 12/03/17 16:00 12/03/17 16:00 12/03/17 16:00 12/03/17 16:00 Intake and Output: 12/03/17 12/04/17 18:59 06:59 Intake Total 1010 Output Total 26 Balance 984 - Medications Medications: Current Medications Piperacillin Sod/Tazobactam (Sod 3.375 gm/ Sodium Chloride) 100 mls @ 200 mls/ hr IVPB Q6H [facility] PRN Reason: Protocol Last Admin: 12/03/17 15:49 Dose: 200 mls/hr Levothyroxine Sodium (Synthroid) 75 mcg PO 0630 [facility] Last Admin: 12/03/17 05:32 Dose: 75 mcg Ondansetron HCl (Zofran Inj) 4 mg IVP Q6H PRN PRN Reason: Nausea/Vomiting Oxycodone/Acetaminophen (Percocet 5/325 Mg Tab) 1 tab PO Q4H PRN PRN Reason: Pain, moderate (4-7) Stop: 12/06/17 08:56 Pantoprazole Sodium (Protonix Inj) 40 mg IVP DAILY [facility] Last Admin: 12/03/17 09:40 Dose: 40 mg - Labs Labs: 12/03/17 12:48 12/03/17 08:31 PT 11.3 SECONDS (9.7-12.2) 11/30/17 21:26 INR 1.0 11/30/17 21:26 APTT 34 SECONDS (21-34) 11/30/17 21:26
[2017-12-03 23:40] VITALS: RESP 20
--- NOTE | 2017-12-04 02:57 | PN ---
DATE: 12/03/2017SUBJECTIVE: The patient was sitting over. She felt very gaseous because she had laparoscopic cholecystectomy yesterday, but she feels slightly better. Denies abdominal pain. Just feels gassy, and she told me she had a cath re-inserted because she has a prolapse of the bladder, and this was recently placed because she was having multiple UTIs. I told her she has UTI at this time, which should be getting better with the Zosyn that she is on, and probably when she goes home, we will property management coordinator her ampicillin or Augmentin that might cover it, and the patient is tolerating IV antibiotics. She was started on liquids. PHYSICAL EXAMINATION: VITAL SIGNS: T-max is 98, pulse is 69, blood pressure 126/78, and respirations are 16. GENERAL: She does feel some epigastric pressure, I guess from the same gaseous situation, but she is not diaphoretic, no tachycardia. HEENT: Head is atraumatic and normocephalic. She appears pale. NECK: Supple. JVP is flat. LUNGS: Clear. No crackles or rales present. HEART: S1 and S2 are regular. ABDOMEN: Mildly distended, and there are dressings, the umbilical dressing shows some minimal redness around. Otherwise, they are non-impressive dressings. EXTREMITIES: Have no edema. LABORATORY DATA: Labs are noted. White count is 10.8, hemoglobin 11.5, hematocrit 33.7, and platelet count is 313. Her chemistry shows sodium is 140, potassium settled over 3.4, chlorides are 107, CO2 is 25, BUN is 12, creatinine is 0.5, phosphorus is also low, so maybe they want to give Neutra-Phos, that might be better, and albumin is 2.9. MEDICATIONS: Her urine culture was enterococcus. Blood culture and wound cultures are all negative. She had an ERCP and a stent placed, and I told her she needs to follow with Dr. Reno as she will need that stent to be removed, and I also read the note that she may have gastric polyps and may need endoscopy for that. She was made aware of those, and she agreed too, and so at this time, we are continuing with Zosyn, and she is also hyperthyroid. She is on Synthroid, and she is on pain medications as needed, and pantoprazole and Zosyn, so she is not on much. I would repeat the UA and urine SPOOL SORTER, and we will follow. Actually, urine culture was ordered, has been collected, and the patient remains on Zosyn, and she is status post laparoscopic cholecystectomy. Kinsey Cabral MD
[2017-12-04] MEDS: Piperacillin/Tazobact 3.375 GM in Sodium Chloride 100 ML IVPB SCH ×2 (03:30→09:46)
[2017-12-04] MEDS: Levothyroxine 75 MCG TAB PO SCH (06:34)
[2017-12-04 07:31] VITALS: BP 130/69; PULSE 80; TEMP 98; O2SAT 97
--- NOTE | 2017-12-04 08:30 | CP.PCM.PN ---
Subjective - Date & Time of Evaluation Date of Evaluation: 12/04/17 Time of Evaluation: 08:24 - Subjective Subjective: Surgery: Dr. Clark Pt seen and examined. Resting comfortably in bed. Pt states that she is feeling better today. Tolerating dinner, no N/V/D. Objective - Vital Signs/Intake and Output Vital Signs (last 24 hours): Temp Pulse Resp BP Pulse Ox 98.0 F 80 20 130/69 97 12/04/17 07:00 12/04/17 07:00 12/04/17 07:00 12/04/17 07:00 12/04/17 07:00 Intake and Output: 12/04/17 12/04/17 06:59 18:59 Output Total 20 Balance -20 - Medications Medications: Current Medications Piperacillin Sod/Tazobactam (Sod 3.375 gm/ Sodium Chloride) 100 mls @ 200 mls/ hr IVPB Q6H MERVIN PRN Reason: Protocol Last Admin: 12/04/17 03:30 Dose: 200 mls/hr Levothyroxine Sodium (Synthroid) 75 mcg PO 0630 [facility] Last Admin: 12/04/17 06:34 Dose: 75 mcg Ondansetron HCl (Zofran Inj) 4 mg IVP Q6H PRN PRN Reason: Nausea/Vomiting Last Admin: 12/04/17 03:30 Dose: 4 mg Oxycodone/Acetaminophen (Percocet 5/325 Mg Tab) 1 tab PO Q4H PRN PRN Reason: Pain, moderate (4-7) Stop: 12/06/17 08:56 Pantoprazole Sodium (Protonix Inj) 40 mg IVP DAILY [facility] Last Admin: 12/03/17 09:40 Dose: 40 mg - Labs Labs: 12/03/17 12:48 12/03/17 08:31 PT 11.3 SECONDS (9.7-12.2) 11/30/17 21:26 INR 1.0 11/30/17 21:26 APTT 34 SECONDS (21-34) 11/30/17 21:26 - Constitutional Appears: Non-toxic, No Acute Distress - Head Exam Head Exam: ATRAUMATIC, NORMOCEPHALIC - Eye Exam Eye Exam: EOMI - ENT Exam ENT Exam: Mucous Membranes Moist - Neck Exam Neck Exam: Full ROM - Respiratory Exam Respiratory Exam: NORMAL BREATHING PATTERN. absent: Accessory Muscle Use, Respiratory Distress - GI/Abdominal Exam GI & Abdominal Exam: Soft, Tenderness (sumaya-incisional ). absent: Distended, Firm, Guarding, Rigid Additional comments: jac in place - Extremities Exam Extremities Exam: absent: Calf Tenderness, Pedal Edema - Neurological Exam Neurological Exam: Alert, Awake, Oriented x3 Assessment and Plan - Assessment and Plan (Free Text) Assessment: 67F w. cholecystitis, s/p lap lia, POD#2 -EMIR: 5cc/12hr serosang -will d/c drain -pt clear for D/C from surgical standpoint -F/U in office 1-2 weeks -diet as tolerated -no heavy lifting >15-20lbs for 4 weeks -d/w attending Zemaitis PGY4
[2017-12-04 08:57] LABS: BASO % 0.6 % (0.0-2.0); EOS # 0.1 K/uL (0.0-0.7); EOS % 1.6 % (0.0-4.0); HEMOGLOBIN 11.1 g/dL (11.0-16.0); LYMPH # 0.9 K/uL (1.0-4.3); LYMPH % 13.1 % (20.0-40.0); MEAN CELL VOLUME 91.7 fL (81.0-99.0); MEAN CORPUSCULAR HEMOGLOBIN 31.5 pg (27.0-31.0); MEAN CORPUSCULAR HGB CONC 34.4 g/dL (33.0-37.0); MEAN PLATELET VOLUME 7.7 fL (7.2-11.7); MONO # 0.4 K/uL (0.0-0.8); MONO % 6.1 % (0.0-10.0); NEUT # 5.7 K/uL (1.8-7.0); NEUT % 78.6 % (50.0-75.0); RBC 3.52 Mil/uL (3.80-5.20); RED CELL DISTRIBUTION WIDTH 13.4 % (11.5-14.5); WHITE BLOOD COUNT 7.3 K/uL (4.8-10.8)
[2017-12-04 09:14] LABS: ALB/GLOB RATIO 1.1 (1.0-2.1); ALBUMIN 3.3 g/dL (3.5-5.0); ALT/SGPT 65 U/L (9-52); AST/SGOT 36 U/L (14-36); BLOOD UREA NITROGEN 7 mg/dL (7-17); CALCIUM 8.2 mg/dl (8.6-10.4); GFR AFRICAN-AMERICAN > 60; GFR NON-AFRICAN AMERICAN > 60
--- NOTE | 2017-12-04 09:55 | PN ---
DATE: 12/04/2017 LOCATION: 571, Bed A. SUBJECTIVE: I was called for GI followup post ERCP and lap cholecystectomy on the above-mentioned patient. The entire chart is reviewed including but not limited to the most recent lab and radiology study results, current and previous medication list, current and the previous medical events. Case discussed with the staff at length. The patient appears to be awake, alert with a complaint of abdominal pain on and off with reported subsequent drop of hemoglobin and hematocrit as per yesterday. The most recent lab results showed hematocrit of 33.7 with low potassium, low calcium and low phosphorus with mildly elevated AST 254, ALT 63, but normal total bilirubin with low albumin. PHYSICAL EXAMINATION: General: A 67-year-old female. VITAL SIGNS: Afebrile with pulse of 90, respiratory rate 20 to 22, blood pressure of 132/74. HEENT: Showed pale dry oral mucoid membrane. Nonicteric sclerae. LUNGS: Few scattered crepitation. Decreased air entry at bases. HEART: Positive S1 and S2. ABDOMEN: Soft with slight generalized mild tenderness. No mass or organomegaly. No rebound tenderness or guarding. The site of the recently performed surgery appeared to be clean without evidence of anterior abdominal wall cellulitis. EXTREMITIES: Without edema, clubbing or cyanosis. NEUROLOGIC: No reported new neurological deficits, sensory, or motor. No reported chills or fever. No chest pain, palpitation, or evidence of active bleeding. ID workup is in process with complete urine and blood culture workup, results still pending. IMPRESSION: 1. Cholelithiasis. 2. Papillary spasm status post endoscopic retrograde cholangiopancreatography and biliary stent insertion. 3. Known history of rheumatoid arthritis with hypothyroidism. 4. Re-exacerbation of peptic ulcer disease. 5. Abnormal liver function tests most likely related to recent daily reported cholelithiasis with acute cholecystitis. It has to be mentioned that a urine culture showed evidence of Enterococcus despite blood culture reported to be negative. Multiple gastric polyps by recent history to be followed up as outpatient for potential upper endoscopy with polypectomy, after the patient discharged to home Further recommendation to follow. Case to be discussed with ID change management consultant on the case. Nohemi Calero MD
--- NOTE | 2017-12-04 11:16 | CP.PCM.PN ---
Subjective - Date & Time of Evaluation Date of Evaluation: 12/04/17 Time of Evaluation: 11:15 - Subjective Subjective: PATIENT WAS ADMITTED FOR CHOLECYSTITIS AAOX3 / DENEIS CHEST PAIN OR SOB DENIES ABD PAIN / NAUSEA OR VOMITING NO SIGN OF DISTRESS NOTED Objective - Vital Signs/Intake and Output Vital Signs (last 24 hours): Temp Pulse Resp BP Pulse Ox 98.0 F 80 20 130/69 97 12/04/17 07:00 12/04/17 07:00 12/04/17 07:00 12/04/17 07:00 12/04/17 07:00 Intake and Output: 12/04/17 12/04/17 06:59 18:59 Output Total 20 Balance -20 - Medications Medications: Current Medications Piperacillin Sod/Tazobactam (Sod 3.375 gm/ Sodium Chloride) 100 mls @ 200 mls/ hr IVPB Q6H MERVIN PRN Reason: Protocol Last Admin: 12/04/17 09:46 Dose: 200 mls/hr Levothyroxine Sodium (Synthroid) 75 mcg PO 0630 [facility] Last Admin: 12/04/17 06:34 Dose: 75 mcg Ondansetron HCl (Zofran Inj) 4 mg IVP Q6H PRN PRN Reason: Nausea/Vomiting Last Admin: 12/04/17 03:30 Dose: 4 mg Oxycodone/Acetaminophen (Percocet 5/325 Mg Tab) 1 tab PO Q4H PRN PRN Reason: Pain, moderate (4-7) Stop: 12/06/17 08:56 Pantoprazole Sodium (Protonix Inj) 40 mg IVP DAILY [facility] Last Admin: 12/04/17 09:45 Dose: 40 mg - Labs Labs: 12/04/17 08:49 12/04/17 08:49 PT 11.3 SECONDS (9.7-12.2) 11/30/17 21:26 INR 1.0 11/30/17 21:26 APTT 34 SECONDS (21-34) 11/30/17 21:26 Assessment and Plan - Assessment and Plan (Free Text) Assessment: PATIENT SEEN AND EXAMINED AT THE BEDSIDE LUNG SOUND CLEAR CHER ABD SOFT NONDISTENDED / POSITIVE BOWEL SOUND ALL QUADRANT DRESSING DRY AND INTACT DISCUSS WITH DR GARCIA AND DR CHAIREZ WHO CLEAR FOR DC FOLLOW UP WITH DR GARCIA IN HIS OFFICE 1-2 WEEK --CALL FOR APPOINTMENT FOLLOW UP WITH DR CARLSON IN 1-2 WEEK AT HIS OFFICE --CALL FOR APPOINTMENT FOLLOW UP WITH DR TY IN HIS OFFICE IN 2 WEEKS --CALL FOR APPOINTMENT ADDRESS YOUR ENDOSCOPY AND COLONOSCOPY AND STENT REMOVAL AT YOUR VISIT CONTINUE HOME MEDICATION NEW PRESCRIPTION GIVEN AUGNMETIN 875 MG PO BID FOR 5 DAYS BACID ONE TAB PO BID FOR 5 DAYS ACTIVITY TOLERATED / no heavy lifting >15-20lbs for 4 week/AVOID ANY STRENUOUS ACTIVITY FOR THE FIRST WEEK CALL DR GARCIA OR DR CARLSON OR GO TO THE EMERGENCY ROOM IF SYMPTOMS RETURN OR WORSENING DISCUSS WITH PATIENT WHO AGREE AND VERBALIZED UNDERSTANDING
[2017-12-04] MEDS ORDERED: Pneumococcal 23-Valent Vaccine IM ONE (13:00)
== END 2017-12-04 13:35 | disposition home or self-care (01) | DRG 418 ==
LOC: C.ER 20:36 → C.5S 23:26
PROVIDERS: ADMIT Internal Medicine Critical Care Medicine; ATTEND Internal Medicine Critical Care Medicine
PROC: 0FT44ZZ Resection of Gallbladder, Percutaneous Endoscopic Approach (ICD-10-PCS; principal; 2017-12-02 10:00)
DX: K80.62 Calculus of gallbladder and bile duct with acute cholecystitis without obstruction (principal); N39.0 Urinary tract infection, site not specified; B96.89 Other specified bacterial agents as the cause of diseases classified elsewhere; M06.9 Rheumatoid arthritis, unspecified; K31.7 Polyp of stomach and duodenum; K27.9 Peptic ulcer, site unspecified, unspecified as acute or chronic, without hemorrhage or perforation; E03.9 Hypothyroidism, unspecified; B95.2 Enterococcus as the cause of diseases classified elsewhere; E78.5 Hyperlipidemia, unspecified; Z87.440 Personal history of urinary (tract) infections; Z87.891 Personal history of nicotine dependence